=== PATIENT | male | born 1960 | race Caucasian/White ===

== ENCOUNTER 2017-10-31 02:21 | Outpatient (CLI) | payer SELFPAY ==
[2017-10-31 10:34] LABS: HEMOGLOBIN A1C 5.2 % (4.5-6.2)
[2017-10-31 10:49] LABS: CHOL/HDL RATIO 3.25 (0.00-4.99)
== END 2017-10-31 23:59 | disposition home or self-care (01) ==
LOC: HW HEART 02:21
DX: Z13.6 Encounter for screening for cardiovascular disorders (principal)
CPT/HCPCS: 36415

== ENCOUNTER 2021-05-21 09:24 | Day surgery (SDC) | payer MEDICARE, SELFPAY ==
[2021-05-14 15:22] LABS: BASOPHILS # (AUTO) 0.1 X10'3 (0-0.2); BASOPHILS % (AUTO) 1.3 % (0-1); EOSINOPHILS # (AUTO) 0.4 X10'3 (0-0.9); EOSINOPHILS % (AUTO) 4.3 % (0-6); LYMPHOCYTES # (AUTO) 2.2 X10'3 (1.1-4.8); LYMPHOCYTES % (AUTO) 25.5 % (21-51); MEAN CORPUSCULAR HEMOGLOBIN 33.4 PG (27.0-31.0); MEAN CORPUSCULAR HGB CONC 34.8 g/dL (33.0-36.5); MEAN CORPUSCULAR VOLUME 95.9 FL (78-98); MEAN PLATELET VOLUME 8.3 FL (7.4-10.4); MONOCYTES % (AUTO) 11.8 % (2-12); NEUTROPHILS # (AUTO) 4.9 X10'3 (1.8-7.7); NEUTROPHILS % (AUTO) 57.1 % (42-75); PRE OP HEMATOCRIT 41.2 % (42.0-52.0); PRE OP HEMOGLOBIN 14.4 g/dL (14.0-17.9); PRE OP PLATELET COUNT 289 X10'3 (140-440); RED CELL DISTRIBUTION WIDTH 12.8 % (11.5-14.5)
[~2021-05-21] VITALS: Ht 175.3 cm; Wt 111.0 kg
[~2021-05-21 09:24] MED LIST: DOCUMENT DATE & TIME OF BETA-BLOCKER PO ONE; HYDR25TA4 PO; LISI40TA13 PO; METO100T14 PO; OXYC-150 PO; bacitracin 15gm ointment TP ONE; famotidine 20mg tablet PO ONE; ringers solution, lacted 1,000 ML IV SCH; vancomycin 1,500 MG in NS 300ml IV soln IV ONE
[2021-05-21 10:48] LABS: ALANINE AMINOTRANSFERASE 51 U/L (12-78); ALKALINE PHOSPHATASE 59 IU/L (46-116); ASPARTATE AMINO TRANSFERASE 42 U/L (10-37); BILIRUBIN,TOTAL 0.5 MG/DL (0.1-1.0); BLOOD UREA NITROGEN 12 MG/DL (7-18); CALCIUM 9.1 MG/DL (8.5-10.1); CHLORIDE 102 MMOL/L (99-107); GLUCOSE 128 MG/DL (70-104); TOTAL PROTEIN 7.9 G/DL (6.4-8.2)
--- NOTE | 2021-05-21 10:50 | NUR ---
DR SOTO AT THE BEDSIDE. VIEWED AND DISCUSSED WITH PT AND REGARDING SMALL OPEN WOUND LEFT ANTERIOR LOWER LEG. PT STATES HE BELIEVES IT IS FROM USING THE KNEE SCOOTER. SLIGHT REDNESS AT SITE NOTED, NO DRAINAGE. GAVE VERBAL INSTRUCTIONS TO PT ON WOUND CARE AND WILL CALL IN ABO FOR HOME. SURGERY CANCELED UNTIL WOUND HEALED, VANCOMYCIN IV ALREADY IN PROGRESS, PER MD, PT TO BE D/C'D HOME POST INFUSION.
[2021-05-21 10:57] LABS: ANION GAP 11 (8-16); BUN/CREATININE RATIO 17.1 (5.4-32.0); POTASSIUM 4.5 MMOL/L (3.5-5.1); SODIUM 137 MMOL/L (135-145); TOTAL CARBON DIOXIDE 24.5 MMOL/L (24-32); eGFR > 90 ML/MIN
[2021-05-21 11:11] VITALS: BP 168/97
[2021-05-21 11:12] VITALS: BP 168/97
--- NOTE | 2021-05-21 12:15 | NUR ---
VANCOMYCIN INFUSION COMPLETED. IV DC'D WITH CANNULA INTACT AND PRESSURE DSG APPLIED. PT TO F/U WITH DR SOTO'S OFFICE FOR SURGERY RESCHEDULE. DISCHARGED WITH ALL PERSONAL BELONGINGS WITH PRESENT.
== END 2021-05-21 12:15 | disposition home or self-care (01) ==
LOC: PAS 09:24 → UNDOADMIN 09:24 → PAS IN 09:24 → UNDODISIN 12:15 → PAS 12:15 → EDSTATUS 13:15
PROVIDERS: ATTEND Podiatrist Foot & Ankle Surgery
DX: M19.071 Primary osteoarthritis, right ankle and foot (principal); Z53.8 Procedure and treatment not carried out for other reasons; I10 Essential (primary) hypertension; Z20.822 Contact with and (suspected) exposure to COVID-19; Z79.899 Other long term (current) drug therapy; Z79.82 Long term (current) use of aspirin; Z88.0 Allergy status to penicillin; Z72.89 Other problems related to lifestyle; Z98.890 Other specified postprocedural states; Z89.512 Acquired absence of left leg below knee
CPT/HCPCS: 36415; 80053; 85025; 93005; J3370; J7040; J7120; U0003; U0005

== ENCOUNTER 2021-05-28 05:30 | Day surgery (SDC) | payer MEDICARE ==
[~2021-05-28] VITALS: Ht 175.3 cm; Wt 106.8 kg
[2021-05-28] VITALS (8 sets, daily range): BP systolic 109–158; BP diastolic 72–88
[~2021-05-28 05:30] MED LIST changes: +CELE-193 PO; -DOCUMENT DATE & TIME OF BETA-BLOCKER PO ONE; -HYDR25TA4 PO; -METO100T14 PO; +METO100T7 PO; +NIFE-34 PO; -bacitracin 15gm ointment TP ONE
[2021-05-28] MEDS ORDERED: BUPIVAcaine 0.5% inj/PF 30 ML ONE (06:37)
[2021-05-28] MEDS ORDERED: bacitracin 15gm ointment TP ONE (06:37)
[2021-05-28] MEDS ORDERED: fentaNYL /PF 50mcg/ml 5ml ampule ONE (07:06)
[2021-05-28] MEDS ORDERED: MIDAZolam 1 MG/ML 5ML VIAL ONE (07:06)
[2021-05-28] MEDS ORDERED: LIDOcaine 2% (20mg/ml) 5ml vial ONE (07:07)
[2021-05-28] MEDS ORDERED: dexamethasone sod phosphate 4mg/ml inj. ONE ×2 (07:07→08:19)
[2021-05-28] MEDS ORDERED: propofol inj 20 ML IV ONE (07:07)
[2021-05-28] MEDS ORDERED: ROPIVAcaine 0.5% (5mg/ml) 30ml vial ONE ×2 (07:07)
[2021-05-28] MEDS ORDERED: ondansetron/PF 4mg/2ml inj ONE (07:07)
[2021-05-28] MEDS ORDERED: labetalol 20mg/4ml (5mg/ml) syringe IV PRN (07:15)
[2021-05-28] MEDS ORDERED: morphine 4 MG/ML inj SYRINge IV PRN (07:15)
[2021-05-28] MEDS ORDERED: ondansetron/PF 4mg/2ml inj IV PRN (07:15)
[2021-05-28] MEDS ORDERED: ringers solution, lacted 1,000 ML IV SCH (07:15)
[2021-05-28] MEDS ORDERED: morphine 2 MG/ML inj. syringe IV PRN (07:15)
[2021-05-28] MEDS ORDERED: fentaNYL/PF 50MCG/1 ML 2ML syringe IV PRN ×2 (07:15)
[2021-05-28] MEDS ORDERED: hydrALAZINE 20mg/ml inj. IV PRN (07:15)
[2021-05-28] MEDS ORDERED: acetaminophen 1,000mg/100ml IV 100 ML IV ONE (08:02)
[2021-05-28] MEDS ORDERED: ketorolac trometh. 30mg/ml inj. ONE ×2 (08:02→08:10)
[2021-05-28] MEDS ORDERED: ROPIVAcaine 0.2%/PF PUMP/bolus 545 ML POPLITEAL SCH (08:35)
[2021-05-28] MEDS ORDERED: ROPIVAcaine 0.2% (10 MG/5 ML) BOLUS INJECTION POPLITEAL PRN (08:35)
[2021-05-28] MEDS ORDERED: FENTANYL CITRATE/PF 50 MCG/1 ML VIAL ONE (09:51)
--- NOTE | 2021-05-28 11:48 | NUR ---
Received from OR via , accompanied by Anesthesiologist DR SANDRA and report given by Anesthesiolgist. AWAKENS TO VOICE. VITALS STABLE. CAST DI. TOES WARM AND PINK. EDITA PAIN. RLE ELEVATED.
--- NOTE | 2021-05-28 13:18 | NUR ---
AWAKE AND ORIENTED. VITALS STABLE. DRESSING DI. EDITA PAIN. ON Q INSTRUCTIONS GIVEN WITH UNDERSTANDING VERBALIZED. HOME WITH HIS AT THIS TIME.
== END 2021-05-28 13:30 | disposition home or self-care (01) ==
LOC: UNDOADMIN 05:30 → PAS 05:30 → PAS IN 05:30 → EDSTATUS 07:30 → UNDODISIN 13:30 → PAS 13:30
PROVIDERS: ATTEND Podiatrist Foot & Ankle Surgery
DX: T84.098A Other mechanical complication of other internal joint prosthesis, initial encounter (principal); G89.18 Other acute postprocedural pain; I10 Essential (primary) hypertension; E66.9 Obesity, unspecified; Z68.34 Body mass index [BMI] 34.0-34.9, adult; Z72.89 Other problems related to lifestyle; Z88.0 Allergy status to penicillin; Z98.890 Other specified postprocedural states; Z89.512 Acquired absence of left leg below knee; Z79.899 Other long term (current) drug therapy; Y83.8 Other surgical procedures as the cause of abnormal reaction of the patient, or of later complication, without mention of misadventure at the time of the procedure; Y92.89 Other specified places as the place of occurrence of the external cause
CPT/HCPCS: 20900; 27704; 28725; 64446; 64447; 73600; 76000; 76942; 82948; A6223; C1713; C1734; C1776; J0131; J1100; J1885; J2250; J2405; J2704; J2795; J3010; J3370; J3490; J7030; J7040; J7120; S0020; Z7506; Z7508; Z7512; A4618; A6253; A6449; A7000

== ENCOUNTER 2024-01-15 15:02 | Outpatient (CLI) | payer MEDICARE ==
[~2024-01-15 15:02] MED LIST changes: -famotidine 20mg tablet PO ONE; -ringers solution, lacted 1,000 ML IV SCH; -vancomycin 1,500 MG in NS 300ml IV soln IV ONE
== END 2024-01-15 23:59 | disposition home or self-care (01) ==
LOC: RAD 15:02
PROVIDERS: ATTEND Podiatrist Foot & Ankle Surgery
DX: M19.071 Primary osteoarthritis, right ankle and foot (principal); M25.471 Effusion, right ankle; E55.9 Vitamin D deficiency, unspecified; N39.0 Urinary tract infection, site not specified; R73.09 Other abnormal glucose; I73.9 Peripheral vascular disease, unspecified
CPT/HCPCS: 73700

== ENCOUNTER 2024-09-16 11:10 | Outpatient (CLI) | payer MEDICARE ==
--- NOTE | 2024-09-16 13:52 | RADIOLOGY REPORT ---
INDICATION: PRIMARY OSTEOARTHRITIS, RIGHT ANKLE AND FOOT COMPARISON: CT CT LOWER EXTREMITY on DOS: 01/15/24 TECHNIQUE: CT of the right ankle was performed without contrast. Volume transverse images were obtain ed and reconstructed in multiple planes using bone and soft tissue algorithms. Radiation Dose Information: CT Dose: CTDI volume is 14.4 mGy. Dose-length product is 424.98 mGy*cm Findings: Distal fibular resection at the level of distal diaphysis. An intramedullary jamal is seen in distal ti brennen traversing tibiotalar joint to chronically deformed talus and calcaneus with the distal tip beyon d the plantar cortex of calcaneus. Lucency seen surrounding the intramedullary jamal and distal interlo cking screws. There is dorsal subluxation of navicular with disarticulation from talonavicular joint. There is fragmentation, deformity and sclerotic changes of talus and calcaneus compatible wall charc ot joint. Lisfranc joint is congruent. Diffuse soft tissue swelling overlying the ankle. Fluid attenu ation on the dorsal lateral aspect of residual ankle joint reflecting joint effusion. Diffuse atheros clerotic calcification seen. Diffuse periosteal thickening in distal tibial shaft and metaphysis. Ero yousif of tibial plafond noted. No definite drainable fluid collection in the overlying soft tissues. D iffuse fatty muscle atrophy. IMPRESSION: Charcot joint with extensive postoperative changes of the ankle and subtalar joint. Overall, findings do not appear significantly changed.
== END 2024-09-16 23:59 | disposition home or self-care (01) ==
LOC: 64 CT 11:10
PROVIDERS: ATTEND Podiatrist Foot & Ankle Surgery
DX: M19.071 Primary osteoarthritis, right ankle and foot (principal); M25.471 Effusion, right ankle; A52.16 Charcot's arthropathy (tabetic); I70.291 Other atherosclerosis of native arteries of extremities, right leg
CPT/HCPCS: 73700